=== PATIENT | male | born 1965 | race Caucasian/White ===

== ENCOUNTER 2018-03-25 13:25 | Emergency (ER) | payer BC ==
[2018-03-25] MEDS ORDERED: DIPH/PERTUSS(ACELL)/TETANUS VAC/PF 0.5 ML SYR (>=10YO) IM ONE (13:44)
--- NOTE | 2018-03-25 13:45 | ER Document Report ---
ED Medical Screen (RME) - General Chief Complaint: Laceration Stated Complaint: LACERATION TO LEFT 4TH AND 5TH DIGITS Time Seen by Provider: 03/25/18 13:43 Notes: Patient is a 52-year-old man, right-handed, presents with 2 lacerations on his left fourth and fifth fingers from a table saw. Denies heavy bleeding, numbness or tingling. Last tetanus shot was 1993. PE: 2 cm laceration at base of left 4th finger, deep laceration of left 5th finger, able to bend all fingers I have greeted and performed a rapid initial assessment of this patient. A comprehensive ED assessment and evaluation of the patient, analysis of test results and completion of the medical decision making process will be conducted by additional ED providers. TRAVEL OUTSIDE OF THE [place] IN LAST 30 DAYS: No - Related Data Allergies/Adverse Reactions: No Known Allergies Allergy (Unverified 03/25/18 13:30) Past Medical History - Social History Chew tobacco use (# tins/day): Yes Frequency of alcohol use: None Drug Abuse: None Renal/ Medical History: Denies: Hx Peritoneal Dialysis Physical Exam - Vital signs Vitals: Temp Pulse Resp BP Pulse Ox 98.7 F 72 18 143/94 H 96 03/25/18 13:32 03/25/18 13:32 03/25/18 13:32 03/25/18 13:32 03/25/18 13:32 Course - Vital Signs Vital signs: Temp Pulse Resp BP Pulse Ox 98.7 F 72 18 143/94 H 96 03/25/18 13:32 03/25/18 13:32 03/25/18 13:32 03/25/18 13:32 03/25/18 13:32
[2018-03-25] MEDS ORDERED: BUPIVACAINE HCL 0.5 % INJ/PF 30 ML SDV INJ ONE (14:22)
[2018-03-25] MEDS ORDERED: LIDOCAINE 1% INJ-PF (10 MG/ML) 30 ML SDV INJ ONE (14:22)
[2018-03-25] MEDS ORDERED: CEPHALEXIN 500 MG CAPSULE PO ONE (14:23)
--- NOTE | 2018-03-25 14:30 | ER Document Report ---
ED Wound - General Chief Complaint: Laceration Stated Complaint: LACERATION TO LEFT 4TH AND 5TH DIGITS Time Seen by Provider: 03/25/18 13:43 Mode of Arrival: Ambulatory Information source: Patient TRAVEL OUTSIDE OF THE [place] IN LAST 30 DAYS: No - HPI Patient complains to provider of: Laceration Notes: Patient is here with complaints of left ring and pinky finger laceration. States that he was using a table saw. He was cutting a piece of wood that was grabbed by the saw blade which ran his hand through the saw blade. He has a laceration at the base of his left ring finger and a laceration extending almost the entire length of the dorsal aspect of his left pinky finger. He denies any numbness, tingling, weakness. Bleeding is controlled. He is unsure of his last tetanus. He denies fevers. He denies any other injuries. No nausea, vomiting, diarrhea. States that he feels like he can move his finger normally. No other complaints. - Related Data Allergies/Adverse Reactions: No Known Allergies Allergy (Unverified 03/25/18 13:30) Past Medical History - Social History Smoking Status: Former Smoker Chew tobacco use (# tins/day): Yes Frequency of alcohol use: None Drug Abuse: None Family History: Reviewed & Not Pertinent Patient has suicidal ideation: No Patient has homicidal ideation: No Renal/ Medical History: Denies: Hx Peritoneal Dialysis Review of Systems - Review of Systems -: Yes All other systems reviewed and negative Physical Exam - Vital signs Vitals: Temp Pulse Resp BP Pulse Ox 98.7 F 72 18 143/94 H 96 03/25/18 13:32 03/25/18 13:32 03/25/18 13:32 03/25/18 13:32 03/25/18 13:32 - Notes Notes: GENERAL: alert, cooperative, nontoxic, no distress. HEAD: normocephalic, atraumatic EYES: conjunctiva pink without discharge, no external redness or swelling. EARS: no external swelling, no external redness NOSE: atraumatic, no external swelling MOUTH/THROAT: mucous membranes moist and pink NECK: soft, supple, full range of motion, no meningismus. CHEST: no distress, lungs clear and equal throughout. No wheezing, rales, rhonchi. CARDIAC: regular rate and rhythm, no murmur, normal capillary refill, normal pulses. BACK: full range of motion, no CVA tenderness. EXTREMITIES: full range of motion of all extremities. No redness, no swelling. 2 cm laceration at the base of the left ring finger. Bleeding is controlled. No foreign body. Full flexion and extension and normal sensation and cap refill. 6 cm laceration diagonally involving the dorsum of the left pinky finger. Patient appears to have full flexion and extension of this finger. Normal cap refill and sensation distally. No foreign body. No obvious tendon laceration noted. NEURO: alert and oriented 3, no focal deficits, full range of motion of all extremities. PYSCH: appropriate mood, affect. Patient is cooperative. SKIN: pink, warm, dry, no rash. Course - Re-evaluation Re-evalutation: 03/25/18 16:07 Patient is nontoxic appearing with stable vitals. The patient is here with laceration to the left pinky finger and ring finger from a table saw. He has a large laceration across the entire dorsal aspect of the fifth finger and a 1 cm laceration to the base of the ring finger. X-ray shows no acute fracture or foreign body. Patient is noted to have large amount of tissue loss to the dorsal aspect of the pinky finger. Both lacerations were closed. I did debride a lot of tissue from the pinky finger. Laceration was copiously cleaned and copiously irrigated. I was not able to visualize any obvious extensor tendon lacerations. The patient at this point does have full extension of the finger. Digital block was performed and both lacerations were repaired. Patient was placed in a finger splint. He was given tetanus and Keflex. He will be discharged home with a prescription for Keflex and instructions to follow-up with Dr. Adams of the hand at the next available appointment for reevaluation. He should follow-up sooner if he develops worsening pain, fever, drainage, numbness, tingling, weakness, or has any further concerns. The patient is noted to have elevated blood pressure during today's emergency department visit. The patient was informed of this finding. The patient was instructed that this may be related to pre-hypertension and requires further evaluation with a primary care provider. The patient has no hypertensive symptoms at this time. The patient's emergency department workup and current diagnosis were explained to the patient and or family. Follow-up instructions were provided. Medications if prescribed were discussed. Instructions for when to return to the emergency department including specific worrisome symptoms were discussed with the patient and/or family. - Vital Signs Vital signs: Temp Pulse Resp BP Pulse Ox 98.7 F 72 18 143/94 H 96 03/25/18 13:32 03/25/18 13:32 03/25/18 13:32 03/25/18 13:32 03/25/18 13:32 - Diagnostic Test Radiology reviewed: Image reviewed, Reports reviewed - Left hand x-ray without acute fracture or foreign body. Procedures - Immobilization left pinky finger Pre-Proc Neuro Vasc Exam: Normal Immobilizer type: Finger splint (Static) Performed by: PCT Post-Proc Neuro Vasc Exam: Normal Alignment checked and good: Yes - Laceration/Wound Repair left pinky finger Wound length (cm): 6 Wound's Depth, Shape: Into muscle, Irregular Laceration pre-procedure: Sterile PPE donned, Sterile drapes applied, Shur- Clens applied Anesthetic type: 0.5% Bupivacaine Wound explored: Clean, No foreign body removed Irrigated w/ Saline (mLs): 100 Wound Debrided: Moderate Wound Repaired With: Sutures Suture Size/Type: 5:0, Ethilon Number of Sutures: 12 Layer Closure?: No Post-procedure wound care: Sterile dressing applied, Splint applied Post-procedure NV exam normal: Yes Complications: No left ring finger Wound length (cm): 2 Wound's Depth, Shape: Superficial, Linear Laceration pre-procedure: Sterile PPE donned, Sterile drapes applied, Shur- Clens applied Anesthetic type: 0.5% Bupivacaine Wound explored: Clean, No foreign body removed Irrigated w/ Saline (mLs): 50 Wound Repaired With: Sutures Suture Size/Type: 5:0, Ethilon Number of Sutures: 5 Layer Closure?: No Post-procedure wound care: Sterile dressing applied Post-procedure NV exam normal: Yes Complications: No Discharge - Discharge Clinical Impression: Laceration of left little finger Qualifiers: Encounter type: initial encounter Damage to nail status: without damage Foreign body presence: without foreign body Qualified Code(s): S61.217A - Laceration without foreign body of left little finger without damage to nail, initial encounter Laceration of left ring finger Qualifiers: Encounter type: initial encounter Damage to nail status: without damage Foreign body presence: without foreign body Qualified Code(s): S61.215A - Laceration without foreign body of left ring finger without damage to nail, initial encounter Condition: Stable Disposition: HOME, SELF-CARE Instructions: Antibiotic Ointment Protection ([facility]), Laceration Care ([facility]), Prophylactic Antibiotic ([facility]), Soap Cleansing ([facility]), Tetanus Immunization Given ([facility]) Additional Instructions: Keep wound clean and dry. Wear splint until follow-up. Call orthopedics for follow-up appointment this week for recheck. Follow-up sooner for worsening pain, fever, redness, numbness, tingling, weakness, drainage, any further concerns. Your blood pressure was elevated during today's visit. Have this rechecked with your doctor. Prescriptions: Cephalexin Monohydrate [Keflex 500 mg Capsule] 500 mg PO Q6H 5 Days capsule Forms: Elevated Blood Pressure, Smoking Cessation Education Referrals: TERRENCE ADAMS DO [ACTIVE STAFF] - Follow up as needed
--- NOTE | 2018-03-25 14:43 | RADIOLOGY REPORT (SQ) ---
EXAM DESCRIPTION: HAND LEFT 3 VIEWS COMPLETED DATE/TIME: 03/25/2018 2:19 pm REASON FOR STUDY: left hand injury from tablesaw COMPARISON: None. EXAM PARAMETERS: NUMBER OF VIEWS: Three views. TECHNIQUE: AP, lateral and oblique radiographic images acquired of the left hand. LIMITATIONS: None. FINDINGS: MINERALIZATION: Normal. BONES: No acute fracture or dislocation. No worrisome bone lesions. JOINTS: No effusions. SOFT TISSUES: There is apparent soft tissue injury involving the 5th digit. OTHER: No other significant finding. IMPRESSION: Soft tissue injury involving the 5th digit without evidence for fracture. TECHNICAL DOCUMENTATION: JOB ID: [id number] [employer]- All Rights Reserved Reading location - IP/workstation name: [email or web address]
[2018-03-25 16:12] VITALS: BP 132/93
== END 2018-03-25 16:30 | disposition home or self-care (01) ==
LOC: ER 13:25
DX: S61.217A Laceration without foreign body of left little finger without damage to nail, initial encounter (principal); S61.215A Laceration without foreign body of left ring finger without damage to nail, initial encounter; W29.8XXA Contact with other powered hand tools and household machinery, initial encounter; Y93.89 Activity, other specified; R03.0 Elevated blood-pressure reading, without diagnosis of hypertension; Z23 Encounter for immunization; Z87.891 Personal history of nicotine dependence
CPT/HCPCS: 99283; 73130; 90715; 12004; J3490 ×2